=== PATIENT | male | born 1945 | race Caucasian/White ===

== ENCOUNTER 2017-03-03 20:35 | Observation (INO) | payer MEDICARE, BC ==
[~2017-03-03] VITALS: Ht 185.4 cm; Wt 108.0 kg
[~2017-03-03 20:35] MED LIST: LISI-357 PO; METF500 PO; SODI650T PO; ZOCO10TA PO
[2017-03-03] MEDS ORDERED: SODIUM CHLOR 0.9% 1000 ML INJ 1,000 ML IV ONE ×2 (20:47→22:00)
--- NOTE | 2017-03-03 20:51 | PD ---
HPI Chief Complaint: syncope Time Seen by Provider: 20:48 Travel History International Travel<30 days: No Contact w/Intl Traveler<30days: No History of Present Illness HPI 71-year-old male presents to the emergency department via EMS for evaluation after he had a syncopal episode. The patient felt he with his family. He fell forward and was unresponsive. He states the next thing he knew everyone was around him. The patient states he felt fine before a single episode happened. Patient has history diabetes, hypertension, hyperlipidemia. He denies any history of CO. He denies any chest pain or shortness breath. No fevers. No headache. No abdominal pain. No nausea, vomiting, diarrhea. Patient states that he feels his normal self at this time. There was no seizure activity. Patient states he is not on any anticoagulants. PFSH Past Medical History Cancer: Yes (PROSTATE) Cardiovascular Problems: No Diabetes: Yes Endocrine: Yes Genitourinary: No Hepatitis: No Hiatal Hernia: No Immune Disorder: No Musculoskeletal: Yes (ARTHRITIS) Neurologic: No Psychiatric: No Respiratory: No Thyroid Disease: No Past Surgical History Abdominal Surgery: Yes (APPY) AICD: No Genitourinary Surgery: Yes (PROSTATECTOMY) Joint Replacement: No Pacemaker: No Social History Alcohol Use: No Tobacco Use: No Substance Use: No Allergies-Medications (Allergen,Severity, Reaction): Coded Allergies: Penicillin (Unverified Allergy, Unknown, PER MOTHER'S WORD, 07/22/15) Reported Meds & Prescriptions Reported Meds & Active Scripts Active Reported Sodium Bicarbonate 650 Mg Tab (Sodium Bicarbonate) 650 Mg Tab 650 Mg PO DAILY Zocor 10 mg (Simvastatin) 10 Mg Tab 0.5 Tab PO DAILY Lisinopril 5 mg (Lisinopril) 5 Mg Tab 1 Tab PO DAILY Glucophage 500 mg (Metformin HCl) 500 Mg Tab 1,000 Mg PO DAILY Review of Systems Except as stated in HPI: all other systems reviewed are Neg Physical Exam Narrative GENERAL: Well-nourished, well-developed male patient, ambulatory. Afebrile. SKIN: Focused skin assessment warm/dry. HEAD: Normocephalic. Atraumatic. EYES: No scleral icterus. No injection or drainage. NECK: Supple, trachea midline. No JVD or lymphadenopathy. CARDIOVASCULAR: Regular rate and rhythm without murmurs, gallops, or rubs. Bilateral radial and pedal pulses are 2+. RESPIRATORY: Breath sounds equal bilaterally. No accessory muscle use. Lungs sounds are clear to auscultation GASTROINTESTINAL: Abdomen soft, non-tender, nondistended. MUSCULOSKELETAL: No cyanosis, or edema. Bilateral upper lower and extremity strength 5/5. All extremities are neurovascularly intact. BACK: Nontender without obvious deformity. No CVA tenderness. Data Data Last Documented VS Vital Signs Date Time Temp Pulse Resp B/P Pulse Ox O2 Delivery O2 Flow Rate FiO2 03/03/17 22:02 98.3 98 22 133/74 98 Orders Electrocardiogram (03/03/17 20:47) Complete Blood Count With Diff (03/03/17 20:47) Comprehensive Metabolic Panel (03/03/17 20:47) Magnesium (Mg) (03/03/17 20:47) Ckmb (Isoenzyme) Profile (03/03/17 20:47) Troponin I (03/03/17 20:47) Act Partial Throm Time (Ptt) (03/03/17 20:47) Prothrombin Time / Inr (Pt) (03/03/17 20:47) Urinalysis - C+S If Indicated (03/03/17 20:47) Chest, Single Ap (03/03/17 20:47) Ct Brain W/O Iv Contrast(Rout) (03/03/17 20:47) Ecg Monitoring (03/03/17 20:47) Iv Access Insert/Monitor (03/03/17 20:47) Oximetry (03/03/17 20:47) Sodium Chloride 0.9% Flush (Ns Flush) (03/03/17 21:00) Sodium Chlor 0.9% 1000 Ml Inj (Ns 1000 M (03/03/17 20:47) CKMB (03/03/17 20:50) CKMB% (03/03/17 20:50) Sodium Chlor 0.9% 1000 Ml Inj (Ns 1000 M (03/03/17 22:00) Labs Laboratory Tests Test 03/03/17 03/03/17 20:50 21:19 White Blood Count 9.8 TH/MM3 Red Blood Count 4.22 MIL/MM3 Hemoglobin 13.5 GM/DL Hematocrit 40.6 % Mean Corpuscular Volume 96.4 FL Mean Corpuscular Hemoglobin 32.0 PG Mean Corpuscular Hemoglobin 33.2 % Concent Red Cell Distribution Width 13.1 % Platelet Count 164 TH/MM3 Mean Platelet Volume 10.1 FL Neutrophils (%) (Auto) 71.7 % Lymphocytes (%) (Auto) 17.8 % Monocytes (%) (Auto) 8.4 % Eosinophils (%) (Auto) 1.3 % Basophils (%) (Auto) 0.8 % Neutrophils # (Auto) 7.0 TH/MM3 Lymphocytes # (Auto) 1.7 TH/MM3 Monocytes # (Auto) 0.8 TH/MM3 Eosinophils # (Auto) 0.1 TH/MM3 Basophils # (Auto) 0.1 TH/MM3 CBC Comment DIFF FINAL Differential Comment Prothrombin Time 10.5 SEC Prothromb Time International 1.0 RATIO Ratio Activated Partial 23.8 SEC Thromboplast Time Sodium Level 140 MEQ/L Potassium Level 4.7 MEQ/L Chloride Level 108 MEQ/L Carbon Dioxide Level 20.5 MEQ/L Anion Gap 12 MEQ/L Blood Urea Nitrogen 56 MG/DL Creatinine 2.49 MG/DL Estimat Glomerular Filtration 26 ML/MIN Rate Random Glucose 181 MG/DL Calcium Level 8.8 MG/DL Magnesium Level 2.7 MG/DL Total Bilirubin 0.5 MG/DL Aspartate Amino Transf 35 U/L (AST/SGOT) Alanine Aminotransferase 36 U/L (ALT/SGPT) Alkaline Phosphatase 56 U/L Total Creatine Kinase 344 U/L Creatine Kinase MB 5.0 NG/ML Creatine Kinase MB % 1.5 % Troponin I LESS THAN 0.02 NG/ML Total Protein 7.3 GM/DL Albumin 3.5 GM/DL Urine Color YELLOW Urine Turbidity CLEAR Urine pH 6.0 Urine Specific [place] 1.019 Urine Protein 300 mg/dL Urine Glucose (UA) NEG mg/dL Urine Ketones NEG mg/dL Urine Occult Blood TRACE Urine Nitrite NEG Urine Bilirubin NEG Urine Urobilinogen LESS THAN 2.0 MG/DL Urine Leukocyte Esterase NEG Urine RBC 1 /hpf Urine WBC 1 /hpf Urine Hyaline Casts 16 /lpf Urine Mucus FEW /lpf Microscopic Urinalysis Comment CULT NOT INDICATED MDM Medical Decision Making Medical Screen Exam Complete: Yes Emergency Medical Condition: Yes Medical Record Reviewed: Yes Interpretation(s) Last Impressions Head CT 03/03/172046 Signed Impressions: Service Date/Time: Friday, March 03, 2017 21:30 - CONCLUSION: No acute disease. Erik Andrade MD Chest X-Ray 03/03/172046 Signed Impressions: Service Date/Time: Friday, March 03, 2017 21:08 - CONCLUSION: No acute disease. Erik Andrade MD Differential Diagnosis electrolyte abnormality vs. ACS vs. dehydration vs. pneumonia vs. intracranial abnormality Narrative Course 71-year-old male presents to the emergency department for evaluation after syncopal episode that occurred just prior to arrival. EKG, CBC, CMP, magnesium , CK, troponin, PTT, PT/INR, UA, chest x-ray, CT of the brain are ordered and pending. Patient is given normal saline 1 L IV bolus. EKG shows sinus rhythm, heart rate 96 with right bundle branch block, left anterior fascicular block, no acute ST changes. I compared his previous EKG done in 2014 which shows no acute changes. CBC shows no acute abnormality. CMP shows elevated BUN 56, creatinine 2.49. Magnesium is 2.7. CK is 344. Troponin is less than 0.02. Coags show no acute abnormality. UA shows no acute abnormality. Chest x-ray shows no acute disease. CT of the brain shows no acute disease. Patient is given second liter normal saline IV bolus. Patient states that he does see Dr. Guillen for kidney issues. He is unsure when his last creatinine was. He does state that he has a history of high potassium and is in a new medication for that. Dr. Sher accepted admission. Diagnosis Primary Impression: Syncope Qualified Code: R55 - Syncope, unspecified syncope type Admitting Information Admitting Physician Requests: Observation Germania Hale Mar 03, 2017 20:51
[2017-03-03] MEDS ORDERED: SODIUM CHLORIDE 0.9% FLUSH 10 ML FLUSH IVF PRN (21:00)
--- NOTE | 2017-03-03 21:20 | RADRPT ---
EXAM DATE/TIME: 03/03/2017 21:08 [facility] COMPARISON: CHEST PA & LAT, June 12, 2015, 10:39. INDICATIONS : Syncope MEDICAL HISTORY : Hypertension. Diabetes mellitus type II. SURGICAL HISTORY : Colon polyp removal ENCOUNTER: Initial ACUITY: 1 day PAIN SCORE: 0/10 LOCATION: Bilateral chest FINDINGS: A single view of the chest demonstrates the lungs to be symmetrically aerated without evidence of mas s, infiltrate or effusion. The cardiomediastinal contours are unremarkable. Osseous structures are intact. CONCLUSION: No acute disease. Erik Andrade MD on March 03, 2017 at 21:19 Board Certified Radiologist. This report was verified electronically.
[2017-03-03 21:24] LABS: APTT (PATIENT) 23.8 SEC (24.3-30.1); PROTHROMBIN TIME - PATIENT 10.5 SEC (9.8-11.6)
[2017-03-03 21:26] LABS: BASOPHIL # 0.1 TH/MM3 (0-0.2); BASOPHIL % 0.8 % (0.0-2.0); EOSINOPHIL # 0.1 TH/MM3 (0-0.4); EOSINOPHIL % 1.3 % (0.0-4.0); HEMATOCRIT 40.6 % (39.0-51.0); HEMO FLAGS DIFF FINAL; LYMPH % 17.8 % (9.0-44.0); LYMPHOCYTE # 1.7 TH/MM3 (1.0-4.8); MEAN CELL VOLUME 96.4 FL (80.0-100.0); MEAN CORPUSCULAR HGB CONC 33.2 % (32.0-36.0); MONO % 8.4 % (0.0-8.0); NEUT % 71.7 % (16.0-70.0); PLATELET COUNT 164 TH/MM3 (150-450); RED BLOOD COUNT 4.22 MIL/MM3 (4.50-5.90); RED CELL DISTRIBUTION WIDTH 13.1 % (11.6-17.2); WHITE BLOOD COUNT 9.8 TH/MM3 (4.0-11.0)
[2017-03-03 21:43] LABS: ANION GAP 12 MEQ/L (5-15); AST (GOT) 35 U/L (15-37); BICARBONATE 20.5 MEQ/L (21.0-32.0); BLOOD UREA NITROGEN 56 MG/DL (7-18); CHLORIDE 108 MEQ/L (98-107); GLOMERULAR FILTRATION RATE 26 ML/MIN (>89); MAGNESIUM 2.7 MG/DL (1.5-2.5); POTASSIUM 4.7 MEQ/L (3.5-5.1); SODIUM (NA) 140 MEQ/L (136-145)
[2017-03-03 21:44] LABS: ALT (GPT) 36 U/L (12-78)
[2017-03-03 21:48] LABS: ALKALINE PHOSPHATASE 56 U/L (45-117); CREATINE KINASE 344 U/L (39-308); TOTAL BILIRUBIN ADULT 0.5 MG/DL (0.2-1.0)
[2017-03-03 21:54] LABS: BLOOD, URINE TRACE (NEG); COMMENT (UR) CULT NOT INDICATED; CULTURE IF INDICATED CULT NOT INDICATED; GLUCOSE,URINE NEG (NEG); HYALINE CAST, URINE 16 /lpf (RARE); KETONE, URINE NEG (NEG); MUCUS URINE FEW /lpf (OCC); NITRITE,URINE NEG (NEG); URINE COLOR YELLOW (YELLW/STRAW)
--- NOTE | 2017-03-03 21:59 | RADRPT ---
EXAM DATE/TIME: 03/03/2017 21:30 [facility] COMPARISON: No previous studies available for comparison. INDICATIONS : Syncopal episode. RADIATION DOSE: 56.35 CTDIvol (mGy) MEDICAL HISTORY : Hypertension. Diabetes mellitus type 2. SURGICAL HISTORY : None. ENCOUNTER: Initial ACUITY: 1 day PAIN SCALE: 0/10 LOCATION: cranial TECHNIQUE: Multiple contiguous axial images were obtained of the head. Using automated exposure control and adj ustment of the mA and/or kV according to patient size, radiation dose was kept as low as reasonably a chievable to obtain optimal diagnostic quality images. DICOM format image data is available electro nically for review and comparison. FINDINGS: There is mild atrophy. No signs of acute infarct, hemorrhage or mass. No fractures. CONCLUSION: No acute disease. Erik Andrade MD on March 03, 2017 at 21:57 Board Certified Radiologist. This report was verified electronically.
[2017-03-03 22:02] VITALS: BP 133/74; PULSE 98; RESP 22; TEMP 98.3; O2SAT 98
[2017-03-03 22:07] VITALS: BP 145/81; PULSE 100; PULSE 97; RESP 24; O2SAT 96; O2SAT 97
[2017-03-03] MEDS ORDERED: ACETAMINOPHEN 325 MG TAB PO PRN (22:15)
[2017-03-03] MEDS ORDERED: SODIUM CHLORIDE 0.9% FLUSH 10 ML FLUSH IV FLUSH PRN (22:15)
[2017-03-03] MEDS ORDERED: DEXTROSE 50% IN WATER 50 ML VIAL(D50) IV PRN (22:15)
[2017-03-03] MEDS ORDERED: LACTULOSE SYRUP 20 GM/30 ML CUP PO PRN (22:15)
[2017-03-03] MEDS ORDERED: GLUCAGON 1 MG/ML VIAL OTHER PRN (22:15)
[2017-03-03] MEDS ORDERED: BISACODYL 10 MG SUPP RECTAL PRN (22:15)
[2017-03-03] MEDS ORDERED: MORPHINE SULFATE 4 MG/ML INJ IV PRN (22:15)
[2017-03-03] MEDS ORDERED: ACETAMINOPHEN/HYDROcodone 325 MG/5 MG TAB PO PRN (22:15)
[2017-03-03] MEDS ORDERED: SENNOSIDES 8.6 MG TAB PO PRN (22:15)
[2017-03-03] MEDS ORDERED: ONDANSETRON HCL 4 MG/2 ML VIAL IVP PRN (22:15)
[2017-03-03] MEDS ORDERED: MAGNESIUM HYDROXIDE SUSP 30 ML CUP PO PRN (22:15)
--- NOTE | 2017-03-03 22:15 | HHI.HP ---
[facility] Gustavo Serrato MD Admission Diagnosis syncope Diagnoses: (1) Syncope Diagnosis: Principal (2) Renal insufficiency Diagnosis: Principal (3) Dehydration Diagnosis: Principal (4) Rhabdomyolysis Diagnosis: Principal (5) DM (diabetes mellitus) Travel History International Travel<30 Days: No Contact w/Intl Traveler <30 Da: No Traveled to Known Affected Are: No History of Present Illness This is a 71-year-old male with a PMH of Prostate CA and DM who was brought to the ER by EMS after syncopal episode. Patient was out having dinner with family when he had sudden syncopal event, denies any prodromal symptoms, no dizziness or lightheadedness. No previous history of similar symptoms. On arrival, BP 133/74, HR 98, O2 sat 98% on RA, Afebrile. CBC essentially unremarkable. Creatinine 2.49, previously 1.34 on 06/22/15. CPK 344. GFR 56. Troponin negative. INR 1.0. UA negative for UTI. CXR with no acute findings. CT Head negative. Patient currently without any complaints. Review of Systems Except as stated in HPI: all other systems reviewed are Neg ROS: 14 point review of systems otherwise negative. Past Family Social History Past Medical History PMH: Prostate CA and DM Past Surgical History PAST SURGICAL HISTORY: Appendectomy, Prostatectomy Allergies: Coded Allergies: Penicillin (Unverified Allergy, Unknown, PER MOTHER'S WORD, 07/22/15) Family History PAST FAMILY HISTORY: Reviewed. No h/o DM or CAD Social History PAST SOCIAL HISTORY: Negative for alcohol, tobacco or drugs. Physical Exam Vital Signs Vital Signs Date Time Temp Pulse Resp B/P Pulse Ox O2 Delivery O2 Flow Rate FiO2 03/03/17 22:07 97 24 97 Nasal Cannula 2 03/03/17 22:07 100 24 145/81 96 Nasal Cannula 2 03/03/17 22:02 98.3 98 22 133/74 98 Physical Exam PE: GENERAL: She was pleasant elderly white male in no acute distress. HEENT: PERRLA, EOMI. No scleral icterus or conjunctival pallor. No lid lag or facial droop. CARDIOVASCULAR: Regular rate and rhythm. No obvious murmurs to auscultation. No chest tenderness to palpation. RESPIRATORY: No obvious rhonchi or wheezing. Clear to auscultation. Breath sounds equal bilaterally. GASTROINTESTINAL: Abdomen soft, non-tender, nondistended. BS normal. MUSCULOSKELETAL: Extremities without clubbing, cyanosis, or edema. No obvious deformities. NEUROLOGICAL: Awake, alert and oriented x4. No focal neurologic deficits. Moving both upper and lower extremities spontaneously. Laboratory Laboratory Tests Test 03/03/17 03/03/17 20:50 21:19 White Blood Count 9.8 Red Blood Count 4.22 Hemoglobin 13.5 Hematocrit 40.6 Mean Corpuscular Volume 96.4 Mean Corpuscular Hemoglobin 32.0 Mean Corpuscular Hemoglobin 33.2 Concent Red Cell Distribution Width 13.1 Platelet Count 164 Mean Platelet Volume 10.1 Neutrophils (%) (Auto) 71.7 Lymphocytes (%) (Auto) 17.8 Monocytes (%) (Auto) 8.4 Eosinophils (%) (Auto) 1.3 Basophils (%) (Auto) 0.8 Neutrophils # (Auto) 7.0 Lymphocytes # (Auto) 1.7 Monocytes # (Auto) 0.8 Eosinophils # (Auto) 0.1 Basophils # (Auto) 0.1 CBC Comment DIFF FINAL Differential Comment Prothrombin Time 10.5 Prothromb Time International 1.0 Ratio Activated Partial 23.8 Thromboplast Time Sodium Level 140 Potassium Level 4.7 Chloride Level 108 Carbon Dioxide Level 20.5 Anion Gap 12 Blood Urea Nitrogen 56 Creatinine 2.49 Estimat Glomerular Filtration 26 Rate Random Glucose 181 Calcium Level 8.8 Magnesium Level 2.7 Total Bilirubin 0.5 Aspartate Amino Transf 35 (AST/SGOT) Alanine Aminotransferase 36 (ALT/SGPT) Alkaline Phosphatase 56 Total Creatine Kinase 344 Creatine Kinase MB 5.0 Creatine Kinase MB % 1.5 Troponin I LESS THAN 0.02 Total Protein 7.3 Albumin 3.5 Urine Color YELLOW Urine Turbidity CLEAR Urine pH 6.0 Urine Specific [place] 1.019 Urine Protein 300 Urine Glucose (UA) NEG Urine Ketones NEG Urine Occult Blood TRACE Urine Nitrite NEG Urine Bilirubin NEG Urine Urobilinogen LESS THAN 2.0 Urine Leukocyte Esterase NEG Urine RBC 1 Urine WBC 1 Urine Hyaline Casts 16 Urine Mucus FEW Microscopic Urinalysis Comment CULT NOT INDICATED Result Diagram: 03/03/17204903/03/172049 Assessment and Plan Problem List: (1) Syncope ICD Code: R55 Status: Acute (2) Renal insufficiency ICD Code: N28.9 Status: Acute (3) Dehydration ICD Code: E86.0 Status: Acute (4) Rhabdomyolysis ICD Code: M62.82 Status: Acute (5) DM (diabetes mellitus) ICD Code: E11.9 Status: Acute Assessment and Plan A/P: 1. Syncope: acute syncopal event while at dinner, no dizziness/ lightheadedness. No h/o similar symptoms. CT Head w/ no acute findings, images reviewed by me. Trop negative, check serial cardiac enzymes to eval for underlying ischemia. Telemetry. Check Echo. IVF for hydration. 2. Renal Insufficiency: Acute on Chronic. Creatinine 2.49, previously 1.34 on 06/22/15. U/a negative for UTI. IVF for hydration, repeat labs in am 3. Dehydration: GFR 26, w/ elevated BUN/Creat. IVF for hydration. 4. Rhabdomyolysis: Mild. CPK 344. U/a negative. IVF for hydration, check serial CPK. 5. DM: Sliding scale w/ Accu-Cheks. Hold Metformin in light of renal insufficiency. 6. DVT Prophylaxis: SCD/Teds 7. Social work for d/c planning as needed. 8. Case discussed w/ ER physician at length. Problem Qualifiers (1) Syncope: Qualified Code: R55 - Syncope, unspecified syncope type Nevaeh Sher MD Mar 03, 2017 22:15
[2017-03-03 23:03] VITALS: BP 149/87
[2017-03-03 23:27] VITALS: BP 142/87; PULSE 102; RESP 18; TEMP 98; O2SAT 97
[2017-03-03] MEDS: SODIUM CHLOR 0.9% 1000 ML INJ 1,000 ML IV SCH (23:32)
[2017-03-04] VITALS (9 sets, daily range): BP systolic 143–163; BP diastolic 76–95; PULSE 55–87; RESP 18–19; TEMP 97.8–98.5; O2SAT 95–98
[2017-03-04 04:10] LABS: CREATINE KINASE 281 U/L (39-308)
[2017-03-04] MEDS: INSULIN ASPART SUPPLEMENTAL SCALE SQ SCH ×4 (06:19→20:59)
[2017-03-04] MEDS: DOCUSATE SODIUM 50 MG/SENNA 8.6 MG TAB PO SCH ×2 (09:05→20:55)
[2017-03-04] MEDS: SODIUM CHLORIDE 0.9% FLUSH 10 ML FLUSH IV FLUSH SCH ×2 (09:05→21:00)
--- NOTE | 2017-03-04 11:29 | HHI.PR ---
Subjective Remarks Follow up for syncope. The patient reports feeling back to normal. He has been ambulating the halls without difficulty. Denies any lightheadedness, dizziness, headache, blurred vision, chest pain, palpitations, shortness of breath, or abdominal complaints. He states this has never happened before. He denies any recent nausea/vomiting, diarrhea, profuse sweating, or any reason for dehydration. He states he drinks water regularly. He did have a large meal with 3 meatballs and bowl of pasta just prior to passing out last night. He states he became clammy and lightheaded, then next thing he remembers is being on the floor with people standing over him. He follows with Dr. Guillen for nephrology, he believes his baseline creatinine is around 1.5. He follows with PCP Dr. Serrato. He does not have a shipping receiving manager however we discussed seeing shipping receiving manager as outpatient for possible event monitor. The patient overall feels well and wants to go home today. Objective Vitals Vital Signs Date Time Temp Pulse Resp B/P Pulse Ox O2 Delivery O2 Flow Rate FiO2 03/04/17 08:00 97.8 68 147/76 03/04/17 07:30 58 03/04/17 03:10 97.9 84 18 152/85 98 03/04/17 00:43 87 03/03/17 23:27 98.0 102 18 142/87 97 03/03/17 23:03 94 18 149/87 97 Nasal Cannula 2 03/03/17 22:07 97 24 97 Nasal Cannula 2 03/03/17 22:07 100 24 145/81 96 Nasal Cannula 2 03/03/17 22:02 98.3 98 22 133/74 98 I/O 03/03/17 03/03/17 03/03/17 03/04/17 03/04/17 03/04/17 07:00 15:00 23:00 07:00 15:00 23:00 Intake Total 480 ml Balance 480 ml Intake Oral 480 ml # Voids 2 Result Diagram: 03/03/17204903/03/172049 Other Results Laboratory Tests Test 03/03/17 03/03/17 03/04/17 20:50 21:19 12:55 Prothrombin Time 10.5 SEC Prothromb Time International 1.0 RATIO Ratio Activated Partial 23.8 SEC Thromboplast Time Magnesium Level 2.7 MG/DL Creatine Kinase MB 5.0 NG/ML Creatine Kinase MB % 1.5 % Urine Color YELLOW Urine Turbidity CLEAR Urine pH 6.0 Urine Specific [place] 1.019 Urine Protein 300 mg/dL Urine Glucose (UA) NEG mg/dL Urine Ketones NEG mg/dL Urine Occult Blood TRACE Urine Nitrite NEG Urine Bilirubin NEG Urine Urobilinogen LESS THAN 2.0 MG/DL Urine Leukocyte Esterase NEG Urine RBC 1 /hpf Urine WBC 1 /hpf Urine Hyaline Casts 16 /lpf Urine Mucus FEW /lpf Microscopic Urinalysis Comment CULT NOT INDICATED White Blood Count 7.6 TH/MM3 Red Blood Count 3.78 MIL/MM3 Hemoglobin 12.2 GM/DL Hematocrit 36.1 % Mean Corpuscular Volume 95.6 FL Mean Corpuscular Hemoglobin 32.3 PG Mean Corpuscular Hemoglobin 33.8 % Concent Red Cell Distribution Width 13.1 % Platelet Count 137 TH/MM3 Mean Platelet Volume 10.6 FL Neutrophils (%) (Auto) 64.3 % Lymphocytes (%) (Auto) 23.0 % Monocytes (%) (Auto) 9.5 % Eosinophils (%) (Auto) 2.4 % Basophils (%) (Auto) 0.8 % Neutrophils # (Auto) 4.9 TH/MM3 Lymphocytes # (Auto) 1.7 TH/MM3 Monocytes # (Auto) 0.7 TH/MM3 Eosinophils # (Auto) 0.2 TH/MM3 Basophils # (Auto) 0.1 TH/MM3 CBC Comment DIFF FINAL Differential Comment Sodium Level 143 MEQ/L Potassium Level 4.9 MEQ/L Chloride Level 112 MEQ/L Carbon Dioxide Level 24.6 MEQ/L Anion Gap 6 MEQ/L Blood Urea Nitrogen 45 MG/DL Creatinine 2.07 MG/DL Estimat Glomerular Filtration 32 ML/MIN Rate Random Glucose 117 MG/DL Calcium Level 8.3 MG/DL Total Bilirubin 0.3 MG/DL Aspartate Amino Transf 27 U/L (AST/SGOT) Alanine Aminotransferase 31 U/L (ALT/SGPT) Alkaline Phosphatase 50 U/L Total Creatine Kinase 252 U/L Troponin I LESS THAN 0.02 NG/ML Total Protein 6.6 GM/DL Albumin 3.1 GM/DL Imaging Last Impressions Head CT 03/03/172046 Signed Impressions: Service Date/Time: Friday, March 03, 2017 21:30 - CONCLUSION: No acute disease. Erik Andrade MD Chest X-Ray 03/03/172046 Signed Impressions: Service Date/Time: Friday, March 03, 2017 21:08 - CONCLUSION: No acute disease. Erik Andrade MD Objective Remarks GENERAL: Well-nourished, well-developed elderly male patient in NAD. Ambulating the hallway without difficulty. SKIN: Warm and dry. No rash. HEENT: Normocephalic. Atraumatic.Pupils equal and round. Mucous membranes pink and moist. NECK: Supple. Trachea midline. CARDIOVASCULAR: Regular rate and rhythm. S1, S2 noted. No murmur appreciated. RESPIRATORY: No accessory muscle use. Clear to auscultation. Breath sounds equal bilaterally. GASTROINTESTINAL: Abdomen soft, non-tender, nondistended. Normoactive bowel sounds x4. MUSCULOSKELETAL: No obvious deformities. Extremities without clubbing, cyanosis , or edema. NEUROLOGICAL: Awake and alert. No obvious cranial nerve deficits. Motor grossly within normal limits. Normal speech. PSYCHIATRIC: Appropriate mood and affect; insight and judgment normal. Procedures None Medications and IVs Current Medications Medications (Trade) Dose Ordered Sig/Madhuri Route Start Time Stop Time Status Last Admin (D50w (Vial) Inj) 50 ml UNSCH PRN IV 03/03/17 22:15 Glucagon 1 mg 1 mg UNSCH PRN OTHER 03/03/17 22:15 (NS 1000 ml Inj) 1,000 ml @ 100 mls/hr Q10H IV 03/03/17 23:00 03/03/17 23:32 (NS Flush) 2 ml UNSCH PRN IV FLUSH 03/03/17 22:15 (NS Flush) 2 ml BID IV FLUSH 03/04/17 09:00 03/04/17 09:05 (Zofran Inj) 4 mg Q6H PRN IVP 03/03/17 22:15 (Tylenol) 650 mg Q6H PRN PO 03/03/17 22:15 ([place] 5-325 Mg) 1 tab Q4H PRN PO 03/03/17 22:15 (Morphine Inj) 2 mg Q3H PRN IV 03/03/17 22:15 (Renetta-Colace) 1 tab BID PO 03/04/17 09:00 03/04/17 09:05 (Milk Of Magnesia Liq) 30 ml Q12H PRN PO 03/03/17 22:15 (Senokot) 17.2 mg Q12H PRN PO 03/03/17 22:15 (Dulcolax Supp) 10 mg DAILY PRN RECTAL 03/03/17 22:15 (Lactulose Liq) 30 ml DAILY PRN PO 03/03/17 22:15 Urinary Catheter: No Vascular Central Line Catheter: No A/P Problem List: (1) Syncope ICD Code: R55 Status: Acute (2) Renal insufficiency ICD Code: N28.9 Status: Acute (3) Dehydration ICD Code: E86.0 Status: Acute (4) Rhabdomyolysis ICD Code: M62.82 Status: Acute (5) DM (diabetes mellitus) ICD Code: E11.9 Status: Acute Assessment and Plan 71-year-old male with a PMH of Prostate CA, CKD, and DM who was brought to the ER by EMS after syncopal episode after eating large meal at dinner. Syncope: acute syncopal event while at dinner, no dizziness/lightheadedness. No h/o similar symptoms. CT Head w/ no acute findings, images reviewed by me. Trop negative x2, checking 3rd set to rule out ACS. EKG reviewed by me, no acute ischemic changes, has RBBB consistent with previous EKG in 2015. Monitor on Telemetry, no acute findings. Check Echo, results pending. Give IVF for hydration. Symptoms improved. Discussed outpatient f/up with a shipping receiving manager to consider event monitor. Acute on Chronic Renal Insufficiency: Creatinine 2.49, previously 1.34 on . U/a negative for UTI. Give IVF for hydration, repeat labs today pending. Continue outpatient f/up with station tender Dr. Guillen. Dehydration: GFR 26, w/ elevated BUN/Creat. Give IVF for hydration. Rhabdomyolysis: Mild. Suspect secondary to syncope/collapse. CPK 344. U/a negative. IVF for hydration. Repeat CPK trending down, now 281. DM: Sliding scale w/ Accu-Cheks. Hold Metformin in light of renal insufficiency. DVT Prophylaxis: SCD/Teds Discharge Planning Likely discharge later today if renal function improves and echocardiogram resulted. Attending Statement The exam, history, and the medical decision-making described in the above note were completed with the assistance of the mid-level provider. I reviewed and agree with the findings presented. I attest that I had a [id number] encounter with the patient on the same day, and personally performed and documented my assessment and findings in the medical record. Discussed with patient in his room. stable no complaint worsening renal function consulted nephrology specialist. Problem Qualifiers (1) Syncope: Qualified Code: R55 - Syncope, unspecified syncope type Elvia Rodriguez PA-C Mar 04, 2017 11:29 Lui Milner MD Mar 04, 2017 17:55
--- NOTE | 2017-03-04 11:57 | EKG ---
Date Performed: 03/03/2017 Time Performed: 20:51:36 PTAGE: 71 years EKG: Sinus rhythm RIGHT BUNDLE BRANCH BLOCK LEFT ANTERIOR FASCICULAR BLOCK CONSIDER ANTERIOR MYOCARDIAL INFARCTION, ag e indeterminate ABNORMAL ECG PREVIOUS TRACING : 06/12/2015 06.06.30 DOCTOR: Parth Navarro Interpretating Date/Time 03/04/2017 11:56:09
[2017-03-04] MEDS: SODIUM CHLOR 0.9% 1000 ML INJ 1,000 ML IV SCH ×2 (13:12→19:00)
[2017-03-04 13:38] LABS: AUTOMATED NEUTROPHIL # 4.9 TH/MM3 (1.8-7.7); BASOPHIL # 0.1 TH/MM3 (0-0.2); BASOPHIL % 0.8 % (0.0-2.0); EOSINOPHIL # 0.2 TH/MM3 (0-0.4); EOSINOPHIL % 2.4 % (0.0-4.0); HEMATOCRIT 36.1 % (39.0-51.0); HEMO FLAGS DIFF FINAL; LYMPHOCYTE # 1.7 TH/MM3 (1.0-4.8); MEAN CELL VOLUME 95.6 FL (80.0-100.0); MEAN CORPUSCULAR HEMOGLOBIN 32.3 PG (27.0-34.0); MEAN CORPUSCULAR HGB CONC 33.8 % (32.0-36.0); MONO % 9.5 % (0.0-8.0); NEUT % 64.3 % (16.0-70.0); PLATELET COUNT 137 TH/MM3 (150-450); RED BLOOD COUNT 3.78 MIL/MM3 (4.50-5.90); RED CELL DISTRIBUTION WIDTH 13.1 % (11.6-17.2); WHITE BLOOD COUNT 7.6 TH/MM3 (4.0-11.0)
[2017-03-04 14:02] LABS: ALKALINE PHOSPHATASE 50 U/L (45-117); ALT (GPT) 31 U/L (12-78); ANION GAP 6 MEQ/L (5-15); AST (GOT) 27 U/L (15-37); BICARBONATE 24.6 MEQ/L (21.0-32.0); BLOOD UREA NITROGEN 45 MG/DL (7-18); CHLORIDE 112 MEQ/L (98-107); CREATINE KINASE 252 U/L (39-308); GLOMERULAR FILTRATION RATE 32 ML/MIN (>89); POTASSIUM 4.9 MEQ/L (3.5-5.1); SODIUM (NA) 143 MEQ/L (136-145); TOTAL BILIRUBIN ADULT 0.3 MG/DL (0.2-1.0)
--- NOTE | 2017-03-04 16:33 | ECHRPT ---
Indication: CARDIOMYOPATHY CONCLUSIONS Normal left ventricular size. Wall thickness is normal. The left ventricular systolic function is grossly normal on limited imaging. No regional wall motion abnormalities are present. Doppler parameters are consistent with impaired left ventricular relaxtion (grade 1 diastolic dysfun ction). Aortic valve sclerosis is present There is trace tricuspid valve regurgitation. Normal estimated pulmonary pressures. BP: 152 / 85 HR: Rhythm: Sinus MEASUREMENTS (Male / Female) Normal Values Technical Quality:Poor 2D ECHO LV Diastolic Diameter PLAX 5.3 cm 4.2 - 5.9 / 3.9 - 5.3 cm LV Systolic Diameter PLAX 3.4 cm IVS Diastolic Thickness 0.9 cm 0.6 - 1.0 / 0.6 - 0.9 cm LVPW Diastolic Thickness 0.9 cm 0.6 - 1.0 / 0.6 - 0.9 cm LV Relative Wall Thickness 0.3 LVOT Diameter 1.7 cm Aortic Root Diameter 3.4 cm LA Systolic Diameter LX 3.2 cm 3.0 - 4.0 / 2.7 - 3.8 cm DOPPLER AV Peak Velocity 235.0 cm/s AV Peak Gradient 22.1 mmHg AV Mean Gradient 11.5 mmHg AV Velocity Time Integral 47.7 cm LVOT Peak Velocity 97.8 cm/s LVOT Peak Gradient 3.8 mmHg LVOT Velocity Time Integral 20.1 cm AV Area Cont Eq vti 1.0 cm AV Area Cont Eq pk 0.9 cm Mitral E Point Velocity 79.5 cm/s Mitral A Point Velocity 108.0 cm/s Mitral E to A Ratio 0.7 TR Peak Velocity 197.0 cm/s TR Peak Gradient 15.5 mmHg FINDINGS LEFT VENTRICLE Normal left ventricular size. Wall thickness is normal. The left ventricular systolic function is grossly normal on limited imaging. No regional wall motion abnormalities are present. Doppler parameters are consistent with impaired left ventricular relaxtion (grade 1 diastolic dysfun ction). AORTIC VALVE Aortic valve sclerosis is present TRICUSPID VALVE Structurally normal tricuspid valve. There is trace tricuspid valve regurgitation. Normal estimated pulmonary pressures. Mariela Choudhury MD, FACC (Electronically Signed) Final Date:04 March 2017 16:32
[2017-03-04] MEDS ORDERED: PATI1POW PO (18:03)
[2017-03-04] MEDS ORDERED: SIMV20TA PO (18:08)
[2017-03-04] MEDS ORDERED: SODI650T PO (18:08)
[2017-03-04] MEDS ORDERED: HYDR12.56 PO (18:08)
[2017-03-04] MEDS ORDERED: LISI-519 PO (18:08)
[2017-03-04] MEDS ORDERED: GLIM2TAB PO (18:08)
[2017-03-05 01:44] VITALS: PULSE 61
[2017-03-05 03:41] VITALS: PULSE 78
[2017-03-05 03:55] VITALS: BP 153/83; PULSE 80; RESP 18; TEMP 98; O2SAT 95
[2017-03-05 05:37] LABS: BICARBONATE 16.9 MEQ/L (21.0-32.0)
[2017-03-05 05:39] LABS: POTASSIUM 5.6 MEQ/L (3.5-5.1)
[2017-03-05] MEDS: INSULIN ASPART SUPPLEMENTAL SCALE SQ SCH (06:06)
[2017-03-05 07:33] VITALS: BP 161/82; PULSE 80; RESP 20; TEMP 97.8; O2SAT 93
--- NOTE | 2017-03-05 07:51 | HHI.DCPOC ---
Discharge Care Plan Diagnosis: (1) Syncope (2) Dehydration (3) Renal insufficiency (4) DM (diabetes mellitus) Goals to Promote Your Health * To prevent worsening of your condition and complications * To maintain your health at the optimal level Directions to Meet Your Goals Take your medications as prescribed Follow your dietary instruction Follow activity as directed Keep your appointments as scheduled Take your immunizations and boosters as scheduled If your symptoms worsen call your PCP, if no PCP go to Urgent Care Center or Emergency Room Smoking is Dangerous to Your Health. Avoid second hand smoke Call the 24-hour hour crisis hotline for domestic abuse at Elvia Rodriguez PA-C Mar 05, 2017 07:51
[2017-03-05 07:58] VITALS: PULSE 70
[2017-03-05] MEDS ORDERED: SODIUM POLYSTYRENE SULFONATE SUSP 15 GM/60 ML CUP PO ONE (08:15)
[2017-03-05] MEDS: SODIUM CHLORIDE 0.9% FLUSH 10 ML FLUSH IV FLUSH SCH (08:15)
--- NOTE | 2017-03-05 08:20 | PD.CONS ---
HPI Service Nephrology Consult Requested By RYLIE Rodriguez Reason for Consult Known CKD ТАТЬЯНА Primary Care Physician Gustavo Serrato MD History of Present Illness The patient is a 71 yo [place] male who is known to our outpatient services for CKD stage 3 related to diabetic nephropathy, HTN, hyperkalemia, metabolic acidosis, and proteinuria. He arrived via EMS Monday evening after a syncopal event that occurred while eating dinner at restaurant with his family. Says just moments before the event, he became lightheaded and sweaty, and the next thing he remembers is people standing over him in the restaurant trying to wake him. Did not lose pulse or respirations. No loss of bowel or bladder control. Since admission, has had cardiac and neurologic work up that has essentially been negative. Says on day of event, he was doing alot of "running around" as he is in process of moving and says he knows he didn't drink any fluid on Monday. He took all of his medications as prescribed on Monday AM including HCTZ and Lisinopril. Denies any recent illness, no new medications, no NVD. Currently, says he is feeling- well and continues to deny any symptoms. Baseline SCr since 2016 is 1.8-2.1 He uses Veltassa for hyperkalemia and has not received any since his admission. Also uses po bicarbonate that he has not been given since admission. Past Family Social History Allergies: Coded Allergies: Penicillin (Unverified Allergy, Unknown, PER MOTHER'S WORD, 07/22/15) Past Medical History CKD stage 3 DM Proteinuria HTN Hyperkalemia Metabolic Acidosis Vit D def Hx of prostate CA Past Surgical History Prostatectomy Appendectomy Reported Medications Reported Meds & Active Scripts Active Reported Hydrochlorothiazide 12.5 Mg Tab 12.5 Mg PO DAILY Simvastatin 20 Mg Tab 20 Mg PO DAILY Lisinopril 5 Mg Tab 5 Mg PO DAILY Sodium Bicarbonate 650 Mg Tab 1,300 Mg PO DAILY Glimepiride 2 Mg Tab 2 Mg PO BIDAC Veltassa (Patiromer Sorbitex Calcium) 8.4 Gm Pow 8.4 Gm PO DAILY Active Ordered Medications Current Medications Medications (Trade) Dose Ordered Sig/Madhuri Route Start Time Stop Time Status Last Admin (D50w (Vial) Inj) 50 ml UNSCH PRN IV 03/03/17 22:15 Glucagon 1 mg 1 mg UNSCH PRN OTHER 03/03/17 22:15 (NS 1000 ml Inj) 1,000 ml @ 100 mls/hr Q10H IV 03/03/17 23:00 03/04/17 13:12 (NS Flush) 2 ml UNSCH PRN IV FLUSH 03/03/17 22:15 (NS Flush) 2 ml BID IV FLUSH 03/04/17 09:00 03/04/17 09:05 (Zofran Inj) 4 mg Q6H PRN IVP 03/03/17 22:15 (Tylenol) 650 mg Q6H PRN PO 03/03/17 22:15 ([place] 5-325 Mg) 1 tab Q4H PRN PO 03/03/17 22:15 (Morphine Inj) 2 mg Q3H PRN IV 03/03/17 22:15 (Renetta-Colace) 1 tab BID PO 03/04/17 09:00 03/04/17 20:55 (Milk Of Magnesia Liq) 30 ml Q12H PRN PO 03/03/17 22:15 (Senokot) 17.2 mg Q12H PRN PO 03/03/17 22:15 (Dulcolax Supp) 10 mg DAILY PRN RECTAL 03/03/17 22:15 (Lactulose Liq) 30 ml DAILY PRN PO 03/03/17 22:15 Family History [place] Social History . Lives locally in [place]. Social EtOH No tobacco No illicits Physical Exam Vital Signs Vital Signs Date Time Temp Pulse Resp B/P Pulse Ox O2 Delivery O2 Flow Rate FiO2 03/05/17 07:58 70 03/05/17 07:33 97.8 80 20 161/82 93 03/05/17 03:55 98.0 80 18 153/83 95 03/05/17 03:41 78 03/05/17 01:44 61 03/04/17 23:44 98.1 73 18 163/78 98 03/04/17 20:40 63 03/04/17 19:46 98.0 69 18 158/95 95 03/04/17 15:34 98.4 58 19 162/89 96 03/04/17 12:00 98.5 55 19 143/82 97 Physical Exam GENERAL: Sitting up in bed. Watching TV. In NAD SKIN: Warm and dry. HEAD: Atraumatic. Normocephalic. EYES: Pupils equal and round. No scleral icterus. No injection or drainage. ENT: No nasal bleeding or discharge. Mucous membranes pink and moist. NECK: Trachea midline. No JVD. CARDIOVASCULAR: Regular rate and rhythm. RESPIRATORY: No accessory muscle use. Clear to auscultation. Breath sounds equal bilaterally. GASTROINTESTINAL: Abdomen soft, non-tender, nondistended. Hepatic and splenic margins not palpable. MUSCULOSKELETAL: Extremities without clubbing, cyanosis, or edema. No obvious deformities. NEUROLOGICAL: Awake and alert. No obvious cranial nerve deficits. Motor grossly within normal limits. Five out of 5 muscle strength in the arms and legs. Normal speech. PSYCHIATRIC: Appropriate mood and affect; insight and judgment normal. Laboratory Laboratory Tests Test 03/04/17 03/05/17 12:55 03:45 White Blood Count 7.6 Red Blood Count 3.78 Hemoglobin 12.2 Hematocrit 36.1 Mean Corpuscular Volume 95.6 Mean Corpuscular Hemoglobin 32.3 Mean Corpuscular Hemoglobin 33.8 Concent Red Cell Distribution Width 13.1 Platelet Count 137 Mean Platelet Volume 10.6 Neutrophils (%) (Auto) 64.3 Lymphocytes (%) (Auto) 23.0 Monocytes (%) (Auto) 9.5 Eosinophils (%) (Auto) 2.4 Basophils (%) (Auto) 0.8 Neutrophils # (Auto) 4.9 Lymphocytes # (Auto) 1.7 Monocytes # (Auto) 0.7 Eosinophils # (Auto) 0.2 Basophils # (Auto) 0.1 CBC Comment DIFF FINAL Differential Comment Sodium Level 143 139 Potassium Level 4.9 5.6 Chloride Level 112 111 Carbon Dioxide Level 24.6 16.9 Anion Gap 6 11 Blood Urea Nitrogen 45 38 Creatinine 2.07 1.81 Estimat Glomerular Filtration 32 37 Rate Random Glucose 117 101 Calcium Level 8.3 7.9 Total Bilirubin 0.3 Aspartate Amino Transf 27 (AST/SGOT) Alanine Aminotransferase 31 (ALT/SGPT) Alkaline Phosphatase 50 Total Creatine Kinase 252 Troponin I LESS THAN 0.02 Total Protein 6.6 Albumin 3.1 Result Diagram: 03/04/17 1255 03/05/17 0345 Imaging Last Impressions Head CT 03/03/172046 Signed Impressions: Service Date/Time: Friday, March 03, 2017 21:30 - CONCLUSION: No acute disease. Erik Andrade MD Chest X-Ray 03/03/172046 Signed Impressions: Service Date/Time: Friday, March 03, 2017 21:08 - CONCLUSION: No acute disease. Erik Andrade MD Assessment and Plan Problem List: (1) Acute on chronic renal insufficiency Plan: The patient's renal functions on admission were acutely declined. Appears underlying etiology related to volume depletion that was exacerbated by presence of ACEi and HCTZ. Renal functions have subsequently improved and are currently at baseline. D/C IVF Overall, he is at baseline and is ready to go home. Potassium is elevated this AM---has not been given Veltassa nor sodium bicarbonate since his admission. Will treat K+ this AM with Kionex 15g as single dose. Repeat K+. If K+ improving, OK to be discharged from renal standpoint with f/u BMP in 3 days. 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 Uses Veltassa as outpatient daily. \\Kionex x1 dose this AM (4) Metabolic acidosis Plan: Resume po bicarb at 650mg BID (5) DM (diabetes mellitus) Plan: Mgmt as per primary (6) Proteinuria Plan: Longstanding with last UPCR 1143mg related to diabetic nephropathy. To resume ACEi as outpatient. (7) Hypertension Plan: BP stable. Will have the patient hold HCTZ at home with close monitoring. Problem Qualifiers (1) Syncope: Qualified Code: R55 - Syncope, unspecified syncope type Charlene Coe Mar 05, 2017 08:20
[2017-03-05] MEDS: DOCUSATE SODIUM 50 MG/SENNA 8.6 MG TAB PO SCH (08:28)
[2017-03-05] MEDS ORDERED: SODIUM BICARBONATE 650 MG TAB PO ONE (08:30)
--- NOTE | 2017-03-05 10:01 | HHI.PR ---
Subjective Remarks Follow up for syncope, ТАТЬЯНА on CKD. The patient reports feeling well again today. He denies any medical complaints including no lightheadedness, dizziness , headache, chest pain, palpitations, shortness of breath, or abdominal complaints. He wants to go home. Objective Vitals Vital Signs Date Time Temp Pulse Resp B/P Pulse Ox O2 Delivery O2 Flow Rate FiO2 03/05/17 07:58 70 03/05/17 07:33 97.8 80 20 161/82 93 03/05/17 03:55 98.0 80 18 153/83 95 03/05/17 03:41 78 03/05/17 01:44 61 03/04/17 23:44 98.1 73 18 163/78 98 03/04/17 20:40 63 03/04/17 19:46 98.0 69 18 158/95 95 03/04/17 15:34 98.4 58 19 162/89 96 03/04/17 12:00 98.5 55 19 143/82 97 Result Diagram: 03/04/17 1255 03/05/17 0800 Imaging Last Impressions Head CT 03/03/172046 Signed Impressions: Service Date/Time: Friday, March 03, 2017 21:30 - CONCLUSION: No acute disease. Erik Andrade MD Chest X-Ray 03/03/172046 Signed Impressions: Service Date/Time: Friday, March 03, 2017 21:08 - CONCLUSION: No acute disease. Erik Andrade MD Objective Remarks GENERAL: Well-nourished, well-developed elderly male patient in [facility]. Ambulating the hallway without difficulty. SKIN: Warm and dry. No rash. HEENT: Normocephalic. Atraumatic. Mucous membranes pink and moist. NECK: Supple. Trachea midline. CARDIOVASCULAR: Regular rate and rhythm. S1, S2 noted. No murmur appreciated. RESPIRATORY: No accessory muscle use. Clear to auscultation. Breath sounds equal bilaterally. GASTROINTESTINAL: Abdomen soft, non-tender, nondistended. Normoactive bowel sounds x4. MUSCULOSKELETAL: No obvious deformities. Extremities without clubbing, cyanosis , or edema. NEUROLOGICAL: Awake and alert. No obvious cranial nerve deficits. Motor grossly within normal limits. Normal speech. PSYCHIATRIC: Appropriate mood and affect; insight and judgment normal. Procedures None Medications and IVs Current Medications Medications (Trade) Dose Ordered Sig/Madhuri Route Start Time Stop Time Status Last Admin (D50w (Vial) Inj) 50 ml UNSCH PRN IV 03/03/17 22:15 (Glucagon Inj) 1 mg UNSCH PRN OTHER 03/03/17 22:15 (NS Flush) 2 ml UNSCH PRN IV FLUSH 03/03/17 22:15 (NS Flush) 2 ml BID IV FLUSH 03/04/17 09:00 03/05/17 08:15 (Zofran Inj) 4 mg Q6H PRN IVP 03/03/17 22:15 (Tylenol) 650 mg Q6H PRN PO 03/03/17 22:15 ([place] 5-325 Mg) 1 tab Q4H PRN PO 03/03/17 22:15 (Renetta-Colace) 1 tab BID PO 03/04/17 09:00 03/05/17 08:28 (Milk Of Magnesia Liq) 30 ml Q12H PRN PO 03/03/17 22:15 (Senokot) 17.2 mg Q12H PRN PO 03/03/17 22:15 (Dulcolax Supp) 10 mg DAILY PRN RECTAL 03/03/17 22:15 (Lactulose Liq) 30 ml DAILY PRN PO 03/03/17 22:15 A/P Problem List: (1) Syncope ICD Code: R55 Status: Acute (2) Renal insufficiency ICD Code: N28.9 Status: Acute (3) Dehydration ICD Code: E86.0 Status: Acute (4) Rhabdomyolysis ICD Code: M62.82 Status: Acute (5) DM (diabetes mellitus) ICD Code: E11.9 Status: Acute Assessment and Plan 71-year-old male with a PMH of Prostate CA, CKD, and DM who was brought to the ER by EMS after syncopal episode after eating large meal at dinner. Syncope: acute syncopal event while at dinner. No h/o similar symptoms. CT Head w/ no acute findings, images reviewed by me. ACS ruled out with negative serial cardiac enzymes. EKG reviewed by me, no acute ischemic changes, has RBBB consistent with previous EKG in 2015. Monitor on Telemetry, no acute findings. Echocardiogram with normal systolic function. Given IVF for hydration. Symptoms resolved. Discussed outpatient f/up with a water quality analyst to consider event monitor. Acute on Chronic Renal Insufficiency: Creatinine 2.49, previously 1.34 on . U/a negative for UTI. Give IVF for hydration, repeat labs today showed improvement with creatinine 1.81, DrKaty patient's baseline of 1.9 (patient provided outpatient labs from October2016. Consulted nephrology, cleared for discharge, continue outpatient f/up with rn acute care Dr. Guillen. Dehydration: GFR 26, w/ elevated BUN/Creat. Give IVF for hydration. Resolved. Rhabdomyolysis: Mild. Suspect secondary to syncope/collapse. CPK 344. U/a negative. IVF for hydration. Repeat CPK trending down, now 252. Resoled. DM: Sliding scale w/ Accu-Cheks. Resume home meds upon discharge. Hyperkalemia: K 5.6, suspect secondary to hemolysis, repeat stat K 4.9. Resolved. DVT Prophylaxis: SCD/Teds Discharge Planning Discharge patient to home Condition on discharge: Improved Heart Healthy/Diabetic Diet as tolerated Ad Trice activity Rx written: no new meds Follow-up with primary care physician, nephrology, and cardiology Attending Statement The exam, history, and the medical decision-making described in the above note were completed with the assistance of the mid-level provider. I reviewed and agree with the findings presented. I attest that I had a [id number] encounter with the patient on the same day, and personally performed and documented my assessment and findings in the medical record. Problem Qualifiers (1) Syncope: Qualified Code: R55 - Syncope, unspecified syncope type Elvia Rodriguez PA-C Mar 05, 2017 10:01 Lui Milner MD Mar 05, 2017 18:02
--- NOTE | 2017-03-05 18:24 | EKG ---
Date Performed: 03/04/2017 Time Performed: 13:22:38 PTAGE: 71 years EKG: Sinus rhythm RIGHT BUNDLE BRANCH BLOCK LEFT ANTERIOR FASCICULAR BLOCK ABNORMAL ECG PREVIOUS TRACING : 03/03/2017 20.51 Compared to prior tracing no significant change DOCTOR: Parth Navarro Interpretating Date/Time 03/05/2017 18:23:06
== END 2017-03-05 10:10 | disposition home or self-care (01) ==
LOC: NEPC 20:35 → NEDA 22:14 → NEPGCP 23:19
PROVIDERS: ADMIT Internal Medicine; ATTEND Internal Medicine
DX: R55 Syncope and collapse (principal); E86.0 Dehydration; M62.82 Rhabdomyolysis; I45.2 Bifascicular block; I45.10 Unspecified right bundle-branch block; N17.9 Acute kidney failure, unspecified; E87.2 Acidosis; R94.31 Abnormal electrocardiogram [ECG] [EKG]; I12.9 Hypertensive chronic kidney disease with stage 1 through stage 4 chronic kidney disease, or unspecified chronic kidney disease; N18.3 Chronic kidney disease, stage 3 (moderate); E11.22 Type 2 diabetes mellitus with diabetic chronic kidney disease; E78.5 Hyperlipidemia, unspecified; M19.90 Unspecified osteoarthritis, unspecified site; Z79.899 Other long term (current) drug therapy; Z79.84 Long term (current) use of oral hypoglycemic drugs; Z85.46 Personal history of malignant neoplasm of prostate
CPT/HCPCS: 70450; 71010; 80048; 80053; 81001; 82550; 82552; 82948; 83735; 84132; 84484; 85025; 85610; 85730; 93005; 93306; 96360; 99285; G0378; J7030